=== PATIENT | male | born 1930 | race Hispanic/Latino ===

== ENCOUNTER 2016-09-14 11:12 | Day surgery (SDC) | payer MEDICARE ==
[~2016-09-14 11:12] MED LIST: AK-Dilate OD ONE; AK-Dilate ONE; IOPIDINE OD ONE; IOPIDINE ONE; MYDRIACYL OD ONE; MYDRIACYL ONE
[2016-09-14] MEDS ORDERED: MYDRIACYL OD ONE (12:05)
[2016-09-14] MEDS ORDERED: AK-Dilate OD ONE (12:05)
[2016-09-14] MEDS ORDERED: IOPIDINE OD ONE ×2 (12:05→12:36)
[2016-09-14 12:18] VITALS: BP 138/66
== END 2016-09-14 12:40 | disposition home or self-care (01) ==
LOC: OR 11:12
PROVIDERS: ATTEND Ophthalmology
DX: H26.491 Other secondary cataract, right eye (principal)